=== PATIENT | male | born 1955 | race Caucasian/White ===

== ENCOUNTER 2019-10-06 13:40 | Emergency (ER) | payer MEDICARE, OTHER ==
[~2019-10-06] VITALS: Ht 177.8 cm; Wt 89.2 kg
--- NOTE | 2019-10-06 14:14 | NUR ---
PT A&OX4, RESP EVEN & UNLABORED, SPEECH CLEAR, ABLE TO SPEAK IN COMPLETE SENTENCES W/OUT DIFFICULTY, NO SLURRED SPEECH, SKIN WNL. STATES HE WAS "DRINKING ALL DAY ON TUESDAY" IN [facility]. TUESDAY: EXPERIENCED WEAKNESS, DIZZINESS, "BALANCE WAS TERRIBLE". STATES HE'S BETTER TODAY BUT "MY SPEECH IS A LITTLE SLURRED", "STILL REALLY WEAK", "WRITING IN OFF". LAST ORAL INTAKE: FOOD LAST NOC, WATER TODAY.
[2019-10-06] MEDS ORDERED: [UNRECOGNIZED DRUG - OTHER] (14:22)
[2019-10-06] MEDS ORDERED: ZOLP5TAB6 PO (14:22)
[2019-10-06] MEDS ORDERED: VALACYCLOVIR (14:22)
[2019-10-06] MEDS ORDERED: ATOVASTATIN (14:22)
--- NOTE | 2019-10-06 14:24 | NUR ---
PT ADMITS TO ETOH ON TUESDAY. DENIES ETOH INTAKE TODAY. LAB AT [facility]
[2019-10-06 14:36] LABS: BASOPHILS # (AUTO) 0.04 x10^3/uL (0-0.1); BASOPHILS % (AUTO) 1 % (0-1); EOSINOPHILS # (AUTO) 0.17 x10^3/uL (0-0.4); EOSINOPHILS % (AUTO) 3 % (1-7); LYMPHOCYTES # (AUTO) 2.13 x10^3/uL (1-3.4); LYMPHOCYTES % (AUTO) 33 % (22-44); MD NO; MEAN CORPUSCULAR HEMOGLOBIN 30.9 pg (27.5-34.5); MEAN CORPUSCULAR HGB CONC 33.4 g/dL (33.2-36.2); MEAN CORPUSCULAR VOLUME 92.5 fL (81-97); MEAN PLATELET VOLUME 6.8 fL (7.4-10.4); MONOCYTES # (AUTO) 0.39 x10^3/uL (0.2-0.8); MONOCYTES % (AUTO) 6 % (2-9); NEUTROPHILS # (AUTO) 3.83 x10^3/uL (1.8-6.8); NEUTROPHILS % (AUTO) 58 % (42-75); PLATELET COUNT 247 x10^3/uL (130-400); RED BLOOD COUNT 5.19 x10^6/uL (4.38-5.82); RED CELL DISTRIBUTION WIDTH 13.4 % (9.4-14.8)
[2019-10-06 14:44] LABS: ALANINE AMINOTRANSFERASE 33 U/L (12-78); ANION GAP 4 mmol/L (5-15); CALCIUM 9.4 mg/dL (8.5-10.1); CHLORIDE 108 mmol/L (98-107); CREATININE 0.82 mg/dL (0.7-1.3)
[2019-10-06 14:46] LABS: ALKALINE PHOSPHATASE 56 U/L (45-117); TOTAL PROTEIN 7.7 g/dL (6.4-8.2)
--- NOTE | 2019-10-06 16:17 | NUR ---
PT STANDING IN ROOM, AWAITING DC.
[2019-10-06 16:28] VITALS: BP 130/85
== END 2019-10-06 16:30 | disposition home or self-care (01) ==
LOC: ED 15:58
DX: R42 Dizziness and giddiness (principal); R53.1 Weakness; E86.0 Dehydration; R94.31 Abnormal electrocardiogram [ECG] [EKG]
CPT/HCPCS: 36415; 70450; 80053; 85025; 93005; 99285